=== PATIENT | female | born 1990 | race Two or more races ===

== ENCOUNTER 2017-05-03 20:49 | Emergency (ER) | payer OTHER ==
--- NOTE | 2017-05-04 00:56 | ED ---
Skin Complaint - HPI Summary HPI Summary: Rt hand dominant pt here w/ Lt hand laceration earlier tonight. She was trying to cut a bike lock free with a clean knife and cut her hand. Bleeding controlled w/ pressure. Denies numbness, tingling, weakness. Imms are UTD. - History of Current Complaint Chief Complaint: EDExtremityUpper Time Seen by Provider: 05/04/17 00:02 Stated Complaint: LEFT HAND LAC Hx Obtained From: Patient Pain Intensity: 1 - Allergy/Home Medications Allergies/Adverse Reactions: Allergies Allergy/AdvReac Type Severity Reaction Status Date / Time No Known Allergies Allergy Verified 05/03/17 20:55 PMH/Surg Hx/FS Hx/Imm Hx Previously Healthy: Yes Endocrine/Hematology History: Denies: Hx Anticoagulant Therapy, Hx Blood Disorders, Autoimmune Disease - Immunization History Immunizations Up to Date: Yes Infectious Disease History: No Infectious Disease History: Denies: Hx of Known/Suspected MRSA, Traveled Outside the in Last 30 Days - Family History Known Family History: Positive: None - Social History 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 Lives: With Family - roommates Alcohol Use: None Substance Use Type: Reports: None Smoking Status (MU): Never Smoked Tobacco Review of Systems Musculoskeletal: Negative Negative: Arthralgia, Myalgia, Decreased ROM, Edema Skin: Other - see HPI Neurological: Negative Psychological: Normal All Other Systems Reviewed And Are Negative: Yes Physical Exam Triage Information Reviewed: Yes Vital Signs On Initial Exam: Initial Vitals Temp Pulse Resp BP Pulse Ox 98.2 F 96 16 122/83 99 05/03/17 20:58 05/03/17 20:58 05/03/17 20:58 05/03/17 20:58 05/03/17 20:58 Vital Signs Reviewed: Yes Appearance: Positive: Well-Appearing, No Pain Distress, Well-Nourished Skin: Positive: Warm - linear abrasion over Lt thenar eminence Head/Face: Positive: Normal Head/Face Inspection Eyes: Positive: EOMI ENT: Positive: Hearing grossly normal Respiratory/Lung Sounds: Positive: Breath Sounds Present Cardiovascular: Positive: Pulses are Symmetrical in both Upper and Lower Extremities Musculoskeletal: Positive: Normal, Strength/ROM Intact Neurological: Positive: Normal, Sensory/Motor Intact, Alert, Oriented to Person Place, Time, CN Intact II-III Psychiatric: Positive: Normal Procedures - Laceration/Wound Repair 1 Location: upper extremity - Lt hand Description: Linear Anesthesia: Local, Lido Length, Depth and Shape: 3.5cm x 3mm Betadine Prep?: Yes Irrigated w/ Saline (ccs): 100 Laceration/Wound Explored: clean Closure: Single Layer Suture Type: Nylon - 5-0 Number of Sutures: 7 Layer Closure?: No Sterile Dressing Applied?: Yes - triple anbx ointment + sterile gauze +BABAR wrap Diagnostics - Vital Signs Vital Signs Temp Pulse Resp BP Pulse Ox 05/03/17 20:58 98.2 F 96 16 122/83 99 - Laboratory Lab Statement: Any lab studies that have been ordered have been reviewed, and results considered in the medical decision making process. Course/Dx - Diagnoses Provider Diagnoses: Laceration of left hand Discharge - Discharge Plan Condition: Stable Disposition: HOME Patient Education Materials: Laceration (ED), Care For Your Stitches (ED) Forms: *Work Release Referrals: [facility] [Outside] Additional Instructions: Keep dressing clean, dry and intact for 48 hours. After this time, you may remove dressing - gently wash daily with soap and water - rinse well and pat dry with clean cloth then reapply triple antibiotic ointment and clean gauze with BABAR wrap. Keep hand rested, iced and elevated to aid in swelling, pain and to prevent rupturing sutures, triggering bleeding. You may take ibuprofen with food for pain. Follow-up with PCP in 10 days for wound check and suture removal. Call tomorrow to schedule an appointment. *If you develop redness, swelling, purulent drainage, streaking, fever, chills, return to ED
[2017-05-04 01:13] VITALS: BP 106/70
== END 2017-05-04 01:00 | disposition home or self-care (01) ==
LOC: ED 20:49
DX: S61.412A Laceration without foreign body of left hand, initial encounter (principal); W26.0XXA Contact with knife, initial encounter; Y93.9 Activity, unspecified; Y92.9 Unspecified place or not applicable
CPT/HCPCS: 12002; 99281

== ENCOUNTER 2017-05-13 18:55 | Emergency (ER) | payer OTHER ==
--- NOTE | 2017-05-13 19:19 | ED ---
ED Suture/Wound Check - HPI Summary HPI Summary: Pt here for removal of sutures from Lt hand. Placed on 05/03 for laceration d/t knife while trying to cut bike lock. Denies redness, swelling, purulent drainage , streaking, fever, chills. - History Of Current Complaint Chief Complaint: EDLacSutureRecheck Stated Complaint: REMOVE STITCHES FROM LT HAND Time Seen by Provider: 05/13/17 19:16 Hx Obtained From: Patient Pain Intensity: 0 - Allergies/Home Medications Allergies/Adverse Reactions: Allergies Allergy/AdvReac Type Severity Reaction Status Date / Time No Known Allergies Allergy Verified 05/13/17 18:58 PMH/Surg Hx/FS Hx/Imm Hx Previously Healthy: Yes Endocrine/Hematology History: Denies: Hx Anticoagulant Therapy, Hx Blood Disorders - Immunization History Immunizations Up to Date: Yes Infectious Disease History: Denies: Hx of Known/Suspected MRSA, Traveled Outside the [place] in Last 30 Days - Family History Known Family History: Positive: None - Social History Occupation: Student Lives: With Family - roommates Alcohol Use: None Hx Substance Use: No Substance Use Type: Reports: None Hx Tobacco Use: No Smoking Status (MU): Never Smoked Tobacco Review of Systems Constitutional: Negative Musculoskeletal: Negative Negative: Arthralgia, Myalgia, Decreased ROM, Edema Skin: Other - see HPI Neurological: Negative Negative: Weakness, Paresthesia, Numbness All Other Systems Reviewed And Are Negative: Yes Physical Exam Triage Information Reviewed: Yes Vital Signs On Initial Exam: Initial Vitals Temp Pulse Resp BP Pulse Ox 97.8 F 96 16 134/73 97 05/13/17 18:58 05/13/17 18:58 05/13/17 18:58 05/13/17 18:58 05/13/17 18:58 Vital Signs Reviewed: Yes Appearance: Positive: Well-Appearing, No Pain Distress, Well-Nourished Skin: Positive: Warm - sutures in place Lt hand - no erythema, no edema, no d/c Head/Face: Positive: Normal Head/Face Inspection Eyes: Positive: EOMI ENT: Positive: Hearing grossly normal Respiratory/Lung Sounds: Positive: Breath Sounds Present Cardiovascular: Positive: Pulses are Symmetrical in both Upper and Lower Extremities Musculoskeletal: Positive: Normal, Strength/ROM Intact Neurological: Positive: Normal, Sensory/Motor Intact, Alert, Oriented to Person Place, Time, CN Intact II-III Psychiatric: Positive: Normal Procedures - Procedure Summary Procedure Summary: Sutures removal w/o difficulty. Wound is not completely closed yet - applied dermabond and steristrips - educated pt about care to avoid wound dehissence - states understanding and pt tolerated well. Diagnostics - Vital Signs Vital Signs Temp Pulse Resp BP Pulse Ox 05/13/17 18:58 97.8 F 96 16 134/73 97 - Laboratory Lab Statement: Any lab studies that have been ordered have been reviewed, and results considered in the medical decision making process. Course/Dx - Clinical Impression Provider Diagnoses: Visit for suture removal Discharge - Discharge Plan Condition: Stable Disposition: HOME Patient Education Materials: Stitches Removal (ED), Skin Adhesive Care (ED), Steristrips (ED) Referrals: [facility] [Outside] Additional Instructions: Keep hand clean and dry for 5 more days - avoid gripping or carrying objects in this hand to prevent tearing strips apart and opening wound - do not remove steristrips as they will fall off on their own in 5 days. *If your wound opens back up or you develop redness, swelling, purulent drainage , streaking, pain, fever, go to [facility] or return to ED
[2017-05-13 19:57] VITALS: BP 119/74
== END 2017-05-13 19:54 | disposition home or self-care (01) ==
LOC: ED 18:55
DX: S61.412A Laceration without foreign body of left hand, initial encounter (principal); Z48.02 Encounter for removal of sutures; W26.0XXA Contact with knife, initial encounter; Y93.9 Activity, unspecified; Y92.9 Unspecified place or not applicable
CPT/HCPCS: 99281